=== PATIENT | female | born 1975 | race Asian ===

== ENCOUNTER 2023-04-11 04:22 | Emergency (ER) | payer BC, SELFPAY ==
[2023-04-11] VITALS (7 sets, daily range): BP systolic 105–134; BP diastolic 52–67; PULSE 51–61; RESP 16–19; TEMP 36.4–36.8; O2SAT 96–100; BMI 26.6
--- NOTE | ~2023-04-11 | XR_ITS ---
EXAMINATION: XR THORACIC SPINE XR LUMBAR SPINE CLINICAL INFORMATION: History of sarcoma. Multiple surgeries. Pain. COMPARISON: None TECHNIQUE: Thoracic spine, 2 views Lumbar spine, 3 views FINDINGS: THORACIC SPINE: Intact instrumented posterior spinal fusion at T1-T6. Bilateral transpedicular screws are present at T1, T2, T5 and T6. No osteolysis around the hardware. There is likely surgical absence of posterior elements of T2 and T3 vertebra. There appears to be trabecular sclerosis of the T3 vertebral body. Although this could be a feature of a vertebral body hemangioma, since the patient has a history of sarcoma, query if there is any history of radiation treatment to the thoracic spine which could cause radiation-induced osteitis. The vertebral body heights are maintained. Disc spaces are preserved. Prior wedge resections in the right lung and medial left lung. Although the frontal radiograph suggests possibility of 1.3 cm nodule in the right lower lung, no lung nodule is seen on the lateral view. Cardiomediastinal silhouette has normal size and contour. 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 The lumbar vertebra have well preserved height and alignment. Mild disc space narrowing at L4-L5. There appear to be old bilateral pars defects of L5 with 0.3 cm of grade 1 anterolisthesis of L5 on S1. Sacrum and sacroiliac joints are unremarkable. Normal bowel gas pattern. There are anastomotic siri of bowel in the mid left abdomen. XR/XR lumbar spine 2-3V IMPRESSION: * No evidence of loosening of thoracic spinal fusion hardware. * The observation of trabecular sclerosis of the T3 vertebral body requires correlation with patient's treatment history for sarcoma. Query if there is been any radiation therapy to the upper thoracic spine. * Although there is a questionable nodule of the right lung base on the frontal view of the thoracic spine, no nodule is sen on the lateral view. Prior wedge resections in each lung. Recommend correlation with findings on any prior chest CT exams. * No acute abnormalities in the lumbar spine. Within the lumbar spine, findings include mild degenerative narrowing of disc space at L4-L5, chronic L5 pars defects and mild grade 1 anterolisthesis at L5-S1.
--- NOTE | ~2023-04-11 | MR_ITS ---
EXAMINATION: MR LUMBAR SPINE WITHOUT AND WITH CONTRAST CLINICAL INFORMATION: History of sarcoma and multiple surgeries. Pain. COMPARISON: X-ray lumbar spine dated 04/11/2023. TECHNIQUE: MRI of the lumbar spine was obtained using routine sequences with and without contrast. Intravenous Contrast: Gadavist 6 mL. FINDINGS: There is a heterogeneous lesion with enhancement in the L3 vertebral body measuring 2.3 x 2.5 x 2 cm in size. No extraosseous soft tissue component is identified. There are fatty marrow signal changes in the L2, L3, and L4 vertebrae which may correspond to a prior radiation port. No compression fractures are seen. Multilevel mild facet arthropathy noted. There is mild loss of disc height and shallow central disc protrusion with a mild disc bulge at the L4-L5 level, without central canal stenosis or foraminal narrowing. The remaining discs are well hydrated and normal in appearance. There are chronic L5 pars defects and [id number] facet arthropathy, more so on the right side, at L5-S1. The distal cord, conus tip, and cauda equina nerve roots are normal. No suspicious epidural soft tissue enhancement is visible. No pathologic intradural enhancement is seen. The paraspinal soft tissues are otherwise unremarkable. The imaged bony pelvis appears normal. No retroperitoneal adenopathy is seen. MR/MR lumbar spine wo/w con IMPRESSION: Indeterminate heterogeneously enhancing 2.3 x 2.5 cm intraosseous lesion at the L3 vertebral body level. Fatty marrow changes in the L2, L3, and L4 vertebrae which may be due to prior radiation therapy; clinical correlate. No suspicious soft tissue lesion identified. No compression fractures. No pathologic intradural enhancement. Mild degenerative disc bulge and small central disc protrusion at the L4-L5 level.
--- NOTE | 2023-04-11 07:08 | ED_ITS ---
HPI - Back Pain/Injury General Chief Complaint: Back Pain/Injury Stated Complaint: BACK PAIN,RECENT FUSION PER EMS Time Seen by Provider: 04/11/23 07:07 Source: patient, EMS, RN notes reviewed and old records reviewed Mode of arrival: EMS History of Present Illness HPI Narrative: 48-year-old female with a past medical history of osteosarcoma s/p multiple surgeries, most recently T1-6 vannesa fusion 12 weeks ago at [facility], presenting to the ED complaining of acute on chronic back pain worsening last night. Admits pain usually controlled with baclofen. Also reports numbness/paresthesias to LUE and RLE. Admits to episode of urinary incontinence on Sunday night, woke up after wetting the bed, has been able to control bladder since. Denies recent injury/trauma or fall, heavy lifting, CP/SOB, focal weakness, fecal incontinence, urinary retention MD elicited complaint: back pain Related Data Allergies Allergy/AdvReac Type Severity Reaction Status Date / Time prochlorperazine Allergy Unknown Verified 04/11/23 06:04 [From Compazine] ct-scan dye Allergy Unknown Uncoded 04/11/23 06:05 Review of Systems Review of Systems: Constitutional: No Fever, No Chills, No Fatigue, No Malaise ENT/Mouth: No Ear Pain, No Nasal Congestion,No sore throat, No Rhinorrhea, No Swallowing Difficulty Eyes: No Eye Pain, No Swelling, No Redness No Vision Changes Cardiovascular: No Chest Pain, No SOB, No Edema, No Palpitations Respiratory: No Cough, No Sputum,No Dyspnea Gastrointestinal: No Nausea, No Vomiting, No Diarrhea, No Constipation, No Abdominal pain Genitourinary: No Dysuria, No Urinary Frequency, No Hematuria, + Urinary Incontinence, No retention, No Flank Pain Musculoskeletal: + back pain, No Myalgias, No Joint Swelling Skin: No Skin Lesions, No rash Neuro: No Weakness, + Numbness, + Paresthesias, No Loss of Consciousness, No Dizziness, No Headache Yes all other systems are reviewed and are negative Constitutional: Constitutional: Reports as per HPI Neurologic: Denies Sensory deficit (Neuro) [facility] Past Medical History Attestation statement: The following information was validated with the patient. Source: old records reviewed Social History Social History Smoked in Last 30 Days: No Use of substances other than those prescribed or required for medical reasons: No Advance Directives: No Advance Directives Information Provided: No Physical Exam Vital Signs: Vital Signs: Last Vital Signs Temp 98.3 F 04/11/23 06:00 Pulse 51 04/11/23 13:58 Resp 16 04/11/23 13:58 BP 105/55 L 04/11/23 13:58 Pulse Ox 100 04/11/23 13:58 O2 Del Method Room Air 04/11/23 13:58 BMI result Body Mass Index 26.6 Const: General: cooperative, healthy appearing and no acute distress Orientation/consciousness: patient oriented x3 Limitations: no limitations HEENT: Head: Yes normal to inspection and Yes atraumatic Ears: hearing grossly normal bilaterally General nose exam: Normal external nose present Face and sinus: Yes normal facial exam Eyes: General: appearance normal, both eyes and all related structures EOM: EOMs intact bilaterally Neck: Neck: Yes normal visual inspection and Yes no meningeal signs Resp: Effort & Inspection: normal respiratory effort and no respiratory distress Auscultation: clear to auscultation bilaterally Cardio: Rate: regular rate Heart sounds: S1 normal heart sound present and S2 normal heart sound present GI: Inspection: Yes normal to inspection Palpation (GI): Soft to palpation, nontender, no guarding and not rigid : General: Yes no CVA tenderness Back/Spine/Pelvis: Other: No midline cervical/thoracic/lumbar spinous tenderness/step-off or deformity. + old surgical scars noted to thoracic spine healing appropriately Back: no CVA tenderness Skin: Rashes: no rashes Wounds: no wounds Neuro: Other: Strength intact throughout. No saddle anesthesia. Sensation intact to light touch. Neurovascular intact distally General: patient oriented x3, tone normal, moves all extremities, no meningeal signs and no focal motor deficits Cranial nerves: Yes CN's II-XII intact bila terally Gait exam (Neuro): Normal gait present Motor exam (neuro): 5/5 motor strength present throughout Sensory Exam: No Sensory deficit (Neuro) Extrem: General: Yes normal to inspection Course Course Course Narrative: Received records from [facility]. 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 Further noted on 03/06 patient was controlled with pain with baclofen and Vicodin. Extensive surgical history noted -Radiology, Dr. Betancourt recommending x-rays prior to MRI > unable to perform thoracic MRI due to prior surgical history, will obtain lumbar MRI per Radiology -1055--no leukocytosis. Mildly anemic. ESR minimally elevated. Troponin negative. Labs otherwise reassuring XR thoracic spine 3V/XR lumbar spine 2-3V IMPRESSION: *? No evidence of loosening of thoracic spinal fusion hardware. *? The observation of trabecular sclerosis of the T3 vertebral body requires correlation with patient's treatment history for sarcoma. Query if there is been any radiation therapy to the upper thoracic spine. *? Although there is a questionable nodule of the right lung base on the frontal view of the thoracic spine, no nodule is sen on the lateral view. Prior wedge resections in each lung. Recommend correlation with findings on any prior chest CT exams. *? No acute abnormalities in the lumbar spine. Within the lumbar spine, findings include mild degenerative narrowing of disc space at L4-L5, chronic L5 pars defects and mild grade 1 anterolisthesis at L5-S1.? 1630--ED care transferred to MARKET RESEARCH MANAGER Surya pending MRI and dispo per results Medications Administered Discontinued Medications Generic Name Dose Route Start Last Admin Trade Name Freq PRN Reason Stop Dose Admin Acetaminophen 650 mg 04/11/23 12:00 04/11/23 12:07 Acetaminophen 325 Mg Tablet PO 04/11/23 12:01 650 mg ONCE ONE Administration Morphine Sulfate 2 mg 04/11/23 07:31 04/11/23 08:09 Morphine Sulfate 2 Mg/Ml Cartridge IVPUSH 04/11/23 07:32 2 mg ONCE ONE Administration Protocol Morphine Sulfate 15 mg 04/11/23 12:44 04/11/23 13:05 Morphine Sulfate Immed Release 15 Mg Tablet PO 04/11/23 12:45 15 mg ONCE ONE Administration Ondansetron HCl 4 mg 04/11/23 08:19 04/11/23 08:26 Ondansetron Hcl 4 Mg/2 Ml Vial IVPUSH 04/11/23 08:20 4 mg ONCE ONE Administration Medical Decision Making Medical Decision Making [facility] Narrative: 48-year-old female with a past medical history of osteosarcoma s/p multiple surgeries, most recently T1-6 vannesa fusion 12 weeks ago at [facility], presenting to the ED complaining of acute on chronic back pain worsening last night. On exam vital signs stable, NAD, nontoxic appearing, no midline spinous tenderness or palpable step-off, no saddle anesthesia. Strength intact throughout, neurovascularly intact. Patient reports episode of urinary incontinence a few days ago. Concern for new sarcoma/lesions vs surgical complication/vannesa movement vs MSK pain/spasming. Cord compression on ddx however exam reassurring w/o saddle anesthesia. Lower suspicion for epidural abscess at this time. Unlikely renal stone/pyelo or UTI Plan: Labs, UA, MRI, pain management Please refer to course for remaining clinical decision making, interpretation of labs/imaging results, and discussions with consultants and/or family members. Differential Diagnosis Differential Diagnoses: The differential diagnosis associated with the presentation includes As above Admission/Observation Consideration of admission/observation: Escalation of care including admission/observation considered Lab Data MDM Lab Attestation statement: I reviewed the patient's lab results. 04/11/23 07:49 04/11/23 07:49 Labs: Lab Results 04/11/23 04/11/23 04/11/23 Range/Units 07:49 07:49 07:49 WBC 7.1 (4.8-10.8) X10*3/uL RBC 4.00 L (4.20-5.50) X10*6/uL Hgb 10.6 L (12.0-16.0) g/dl Hct 33.8 L (37.0-47.0) % MCV 84.5 (80.0-98.0) fL MCH 26.5 L (27.0-33.0) pg MCHC 31.4 (31.0-35.0) g/dl RDW 15.3 (11.0-16.0) % Plt Count 504 H (160-400) X10*3/uL MPV 8.6 L (9.4-12.3) fL Immature Gran % (Auto) 0.3 (0.0-0.4) % Neut % (Auto) 73.4 H (45-73) % Lymph % (Auto) 11.5 L (20-40) % [place] % (Auto) 11.0 (2-11) % Eos % (Auto) 3.2 (0-4) % Baso % (Auto) 0.6 (0-2) % Lymph # (Auto) 0.8 L (1.2-4.9) X10*3/uL [place] # (Auto) 0.8 (0.1-1.2) X10*3/uL Eos # (Auto) 0.2 (0.0-0.4) X10*3/uL Baso # (Auto) 0.0 (0.0-0.2) X10*3/uL Abs Immat Gran (auto) 0.02 (0.00-0.03) X10*3/uL Absolute Neuts (auto) 5.2 (2.0-8.3) x10*3/uL Absolute Nucleated RBC 0.000 (0.0-0.012) X10*3/uL Nucleated RBC % (auto) 0.0 (0.0-0.2) /100WBC ESR 23 H (0-20) MM/HR Sodium 140 (135-145) mmol/L Potassium 4.1 (3.3-5.1) mmol/L Chloride 107 (96-108) mmol/L Carbon Dioxide 25 (22-29) mmol/L Anion Gap 12 (12-20) BUN 7 L (9-16) mg/dL Creatinine 0.56 (0.5-1.4) mg/dL Estim Creat Clear Calc 111.3 Estimated GFR > 60 Random Glucose 88 (60-115) mg/dL Calcium 8.9 (8.4-10.2) mg/dL Magnesium (1.6-2.6) mg/dL Total Bilirubin (0.0-1.0) mg/dL Direct Bilirubin (0.0-0.5) mg/dL AST (5-31) U/L ALT (0-31) U/L Alkaline Phosphatase (39-117) U/L Troponin I High Sens (<3.5-17.0) ng/L C-Reactive Protein 0.45 (< or = 0.50) mg/dL Total Protein (6.5-8.0) g/dL Albumin (3.5-5.0) g/dL Urine Color Urine Appearance Urine pH (5.0-9.0) Ur Specific [place] (1.005-1.025) Urine Protein (Neg-Trace) mg/dL Urine Glucose (UA) (Negative) mg/dL Urine Ketones (Negative) mg/dL Urine Blood (Negative) Urine Nitrite (Negative) Ur Leukocyte Esterase (Negative) 04/11/23 04/11/23 04/11/23 Range/Units 07:49 07:50 11:18 WBC (4.8-10.8) X10*3/uL RBC (4.20-5.50) X10*6/uL Hgb (12.0-16.0) g/dl Hct (37.0-47.0) % MCV (80.0-98.0) fL MCH (27.0-33.0) pg MCHC (31.0-35.0) g/dl RDW (11.0-16.0) % Plt Count (160-400) X10*3/uL MPV (9.4-12.3) fL Immature Gran % (Auto) (0.0-0.4) % Neut % (Auto) (45-73) % Lymph % (Auto) (20-40) % [place] % (Auto) (2-11) % Eos % (Auto) (0-4) % Baso % (Auto) (0-2) % Lymph # (Auto) (1.2-4.9) X10*3/uL [place] # (Auto) (0.1-1.2) X10*3/uL Eos # (Auto) (0.0-0.4) X10*3/uL Baso # (Auto) (0.0-0.2) X10*3/uL Abs Immat Gran (auto) (0.00-0.03) X10*3/uL Absolute Neuts (auto) (2.0-8.3) x10*3/uL Absolute Nucleated RBC (0.0-0.012) X10*3/uL Nucleated RBC % (auto) (0.0-0.2) /100WBC ESR (0-20) MM/HR Sodium (135-145) mmol/L Potassium (3.3-5.1) mmol/L Chloride (96-108) mmol/L Carbon Dioxide (22-29) mmol/L Anion Gap (12-20) BUN (9-16) mg/dL Creatinine (0.5-1.4) mg/dL Estim Creat Clear Calc Estimated GFR Random Glucose (60-115) mg/dL Calcium (8.4-10.2) mg/dL Magnesium 1.9 (1.6-2.6) mg/dL Total Bilirubin 0.2 (0.0-1.0) mg/dL Direct Bilirubin < 0.2 (0.0-0.5) mg/dL AST 23 (5-31) U/L ALT 13 (0-31) U/L Alkaline Phosphatase 80 (39-117) U/L Troponin I High Sens < 2.7 (<3.5-17.0) ng/L C-Reactive Protein (< or = 0.50) mg/dL Total Protein 7.1 (6.5-8.0) g/dL Albumin 3.9 (3.5-5.0) g/dL Urine Color Yellow Urine Appearance Clear Urine pH 7.0 (5.0-9.0) Ur Specific [place] 1.015 (1.005-1.025) Urine Protein Negative (Neg-Trace) mg/dL Urine Glucose (UA) Negative (Negative) mg/dL Urine Ketones Negative (Negative) mg/dL Urine Blood Negative (Negative) Urine Nitrite Negative (Negative) Ur Leukocyte Esterase Negative (Negative) Independent Interpretation I performed an independent interpretation of an: EKG (EKG sinus bradycardia at a rate of 49. OR interval 134. QTC 404. No STEMI) Radiology Impression Discussion of test interpretation with radiology: I have reviewed the radiologist's reading. Independent Historian Clinical information obtained from an independent historian. History obtained from or confirmed by: EMS External Record Review External record reviewed: Inpatient record, Office record, Outpatient record, Prior outpatient labs, Prior outpatient radiology, Primary care record and Outside ED record Tests considered The following testing was considered but not selected: As above Prescription Management I considered prescription management with: Pain Medication Chronic Conditions Patient?s care impacted by: Other (Sarcoma, multiple surgeries/resections) Social Determinants Patient?s care significantly limited by Social Determinants of Health including: Other Social Determinant of Health Discharge Plan Discharge Clinical Impression: Back pain Patient Disposition: Home, Self-Care Instructions: Chronic Back Pain (DC) Additional Instructions: Your blood work was reassuring You need to establish a spine doctor/orthopedic as well as an oncologist in this area Continue your home prescribed medications If symptoms persist or worsen you develop focal weakness, urinary incontinence/retention, or fecal incontinence return to the ED immediate [place]: [facility] [place]Provider Group] Gregorio Hopson MD, PhD [Physician] -
--- NOTE | 2023-04-11 07:43 | ECG_ITS ---
Test Reason : numbness Blood Pressure : / mmHG Vent. Rate : 049 BPM Atrial Rate : 049 BPM P-R Int : 134 ms QRS Dur : 078 ms QT Int : 448 ms P-R-T Axes : 048 049 041 degrees QTc Int : 404 ms Sinus bradycardia Otherwise normal ECG No previous ECGs available Referred By: Mercedes Mullen Electronically Signed By:VINNY MONTAÑO
--- NOTE | 2023-04-11 07:44 | MHC.EDTECH ---
Addendum entered by John Sanchez 04/11/23 07:54: and spoke to Milagros Original Note: Called [facility] for medical records
[2023-04-11 07:55] LABS: MANUAL DIFF FLAG NO
[2023-04-11 07:56] LABS: Basophils Percent Auto 0.6 % (0-2); Eosinophils Absolute Auto 0.2 X10*3/uL (0.0-0.4); Eosinophils Percent Auto 3.2 % (0-4); Hematocrit 33.8 % (37.0-47.0); Hemoglobin 10.6 g/dl (12.0-16.0); Imm Gran Abs Auto 0.02 X10*3/uL (0.00-0.03); Imm Gran Pct Auto 0.3 % (0.0-0.4); Lymphocytes Absolute Auto 0.8 X10*3/uL (1.2-4.9); Lymphocytes Percent Auto 11.5 % (20-40); Mean Corpuscular HGB Conc 31.4 g/dl (31.0-35.0); Mean Corpuscular Hemoglobin 26.5 pg (27.0-33.0); Mean Corpuscular Volume 84.5 fL (80.0-98.0); Mean Platelet Volume 8.6 fL (9.4-12.3); Monocytes Absolute Auto 0.8 X10*3/uL (0.1-1.2); Neutrophils Absolute Auto 5.2 x10*3/uL (2.0-8.3); Neutrophils Percent Auto 73.4 % (45-73); Platelet Count 504 X10*3/uL (160-400); Red Cell Distribution Width 15.3 % (11.0-16.0); White Blood Count 7.1 X10*3/uL (4.8-10.8)
[2023-04-11 08:07] LABS: Anion Gap 12 (12-20); Blood Urea Nitrogen 7 mg/dL (9-16); C Reactive Protein 0.45 mg/dL (< or = 0.50); Calcium 8.9 mg/dL (8.4-10.2); Carbon Dioxide 25 mmol/L (22-29); Chloride 107 mmol/L (96-108); Creatinine Clr Calc Pharmacy 111.3; Estimated Glomerular Filt Rate > 60; Glucose Random 88 mg/dL (60-115); Potassium 4.1 mmol/L (3.3-5.1); Sodium 140 mmol/L (135-145)
[2023-04-11 08:08] LABS: Alanine Aminotransferase 13 U/L (0-31); Albumin Level 3.9 g/dL (3.5-5.0); Alkaline Phosphatase 80 U/L (39-117); Aspartate Amino Transferase 23 U/L (5-31); Bilirubin Direct < 0.2 mg/dL (0.0-0.5); Bilirubin Total 0.2 mg/dL (0.0-1.0); Magnesium 1.9 mg/dL (1.6-2.6); Total Protein 7.1 g/dL (6.5-8.0)
[2023-04-11] MEDS: Morphine Sulfate 2 MG/ML CARTRIDGE IVPUSH (08:09)
--- NOTE | 2023-04-11 08:16 | PC.NURSE ---
pt axox4, respirations even and unlabored, ambulatory to bathroom with cane/tech for guidance; steady gait, skin wpd. iv established. pt reports 6/10 upper back pain; pt medicated per oct. ekg obtained. pt reporting nausea; Mercedes AMBROSIO notified. awaiting further orders. pt aware of plan of care; denies questions/concerns at this time.
[2023-04-11 08:17] LABS: Troponin-I High Sensitivity < 2.7 ng/L (<3.5-17.0)
--- NOTE | 2023-04-11 08:20 | MHC.EDTECH ---
Called back to [facility] for the records and spoke to Genet from the [facility] dept. She will send over information
[2023-04-11] MEDS: ondansetron HCL 4 MG/2 ML VIAL IVPUSH (08:26)
[2023-04-11 08:32] LABS: Erythrocyte Sedimentation Rate 23 MM/HR (0-20)
--- NOTE | 2023-04-11 11:00 | PC.NURSE ---
mri screening form completed and faxed to mri. pt pain level assessed 3/10 pain upper back; will notify Mercedes PLAZA
[2023-04-11 11:54] LABS: Appearance Urine Clear; Color Urine Yellow; Glucose Urine UA Negative (Negative); Leukocyte Esterase Urine Negative (Negative); Nitrite Urine Negative (Negative); Specific Gravity - Urine 1.015 (1.005-1.025); Urine Blood Negative (Negative); Urine Ketones Negative (Negative); Urine Protein Negative (Neg-Trace)
[2023-04-11] MEDS: Acetaminophen 325 MG TABLET 650 MG PO (12:07)
[2023-04-11] MEDS: Morphine Sulfate Immed Release 15 MG TABLET PO ×2 (13:05→20:04)
--- NOTE | 2023-04-11 15:40 | PC.NURSE ---
pt to MRI
[2023-04-11] MEDS: gadobutroL 7.5 ML VIAL IVPUSH (17:02)
--- NOTE | 2023-04-11 19:19 | MHC.EDTECH ---
updated vitals for pt at start of my shift, pt would like to speak with nurse. Nurse aware.
--- NOTE | 2023-04-11 19:39 | PC.NURSE ---
This RN took over assignment at 1900. Per pt would like pain meds. Pt requesting to speak to an MD. This RN notified ELECTRICAL SERVICE TECHNICIAN Surya Plan of care ongoing.
== END 2023-04-11 21:07 | disposition home or self-care (01) ==
PROVIDERS: Physician Assistant; Emergency Provider Emergency Medicine; PCP Family Medicine
DX: M54.9 Dorsalgia, unspecified (principal); G95.9 Disease of spinal cord, unspecified; Z98.1 Arthrodesis status
CPT/HCPCS: 36415; 72072; 72100; 72158; 80048; 80076; 81003; 83735; 84484; 85025; 85652; 86140; 93005; 96374; 96375; 99285; A9585; J2270; J2405